=== PATIENT | male | born 1965 | race African-American/Black ===

== ENCOUNTER 2019-03-30 10:23 | Emergency (ER) | payer MEDICARE, MEDICAID ==
[2019-03-30 10:28] VITALS: BP 126/78
[2019-03-30] MEDS ORDERED: LIDOCAINE 2% VISCOUS SOLN 20 ML UDCUP PO ONE (10:40)
--- NOTE | 2019-03-30 10:42 | ER Document Report ---
HPI - HPI Time Seen by Provider: 03/30/19 10:40 Pain Level: 3 Notes: Patient is an otherwise healthy 53-year-old male presenting with left-sided dental pain. Patient reports dental pain has been present for approximately 2 days. He reports pain near tooth #17 and 18. Denies any fevers. Reports mild facial swelling. - CONSTITUTIONAL Constitutional: DENIES: Fever, Chills - EENT EENT: DENIES: Sore Throat, Ear Pain, Eye problems - NEURO Neurology: DENIES: Headache, Weakness, Vision blurred, Dizzinesss / Vertigo - CARDIOVASCULAR Cardiovascular: DENIES: Chest pain - RESPIRATORY Respiratory: DENIES: Trouble Breathing, Coughing - GASTROINTESTINAL Gastrointestinal: DENIES: Abdominal Pain, Black / Bloody Stools - URINARY Urinary: DENIES: Dysuria, Urgency, Frequency - MUSCULOSKELETAL Musculoskeletal: DENIES: Extremity pain Past Medical History - General Information source: Patient - Social History Smoking Status: Current Every Day Smoker Chew tobacco use (# tins/day): No Frequency of alcohol use: Occasional Drug Abuse: None Family History: Reviewed & Not Pertinent Patient has suicidal ideation: No Patient has homicidal ideation: No - Past Medical History Cardiac Medical History: Reports: Hx Hypertension Endocrine Medical History: Denies: Hx Diabetes Mellitus Type 2 Renal/ Medical History: Denies: Hx Peritoneal Dialysis - Immunizations Hx Diphtheria, Pertussis, Tetanus Vaccination: Yes - unknown Vertical Provider Document - CONSTITUTIONAL Notes: PHYSICAL EXAMINATION: GENERAL: Well-appearing, well-nourished and in no acute distress. HEAD: Atraumatic, normocephalic. EYES: Pupils equal round extraocular movements intact, conjunctiva are normal. ENT: Nares patent, erythema noted around tooth #17 and 18, no drainable abscess identified. Mild facial swelling noted. NECK: Normal range of motion LUNGS: No respiratory distress Musculoskeletal: Normal range of motion NEUROLOGICAL: Normal speech, normal gait. PSYCH: Normal mood, normal affect. SKIN: Warm, Dry, normal turgor, no rashes or lesions noted. - INFECTION CONTROL TRAVEL OUTSIDE OF THE [place] IN LAST 30 DAYS: No Course - Re-evaluation Re-evalutation: Presentation is most consistent with likely an infected tooth. Airway is patent. Vitals within normal limits. Patient is able swallow without any difficulty. There is no significant facial swelling. No evidence of Girish angina, apical abscess, or airway obstruction. Patient will be started on antibiotics. I've instructed to follow-up with dentistry as earliest ability for definitive management. At this time will discharge with return precautions and follow-up recommendations. Verbal discharge instructions given a the bedside and opportunity for questions given. Medication warnings reviewed. Patient is in agreement with this plan and has verbalized understanding of return precautions and the need for primary care follow-up in the next 24-72 hours. - Vital Signs Vital signs: Temp Pulse Resp BP Pulse Ox 97.4 F 62 16 126/78 H 100 03/30/19 10:27 03/30/19 10:27 03/30/19 10:27 03/30/19 10:27 03/30/19 10:27 Discharge - Discharge Clinical Impression: Dental infection Condition: Stable Disposition: HOME, SELF-CARE Additional Instructions: You have been seen for dental pain. It is very important that you follow-up with a dentist for definitive care. Please return if you develop fever greater than 101, swelling in your face, vomiting, difficulty breathing or swallowing, or any other symptoms that are concerning to you. For pain you should take ibuprofen 800 mg every 8 hours as needed. Please follow-up with the [facility]. Take the antibiotics as prescribed. Prescriptions: Penicillin V Potassium [Penicillin Vk 500 mg Tablet] 500 mg PO BID #20 tablet Referrals: NEWTON SAGASTUME MD [Primary Care Provider] - Follow up as needed
== END 2019-03-30 10:48 | disposition home or self-care (01) ==
LOC: ER 10:23
DX: K04.7 Periapical abscess without sinus (principal); F17.200 Nicotine dependence, unspecified, uncomplicated; I10 Essential (primary) hypertension
CPT/HCPCS: 99282; J3490

== ENCOUNTER 2019-04-03 16:05 | Emergency (ER) | payer MEDICARE, MEDICAID ==
[2019-04-03] MEDS ORDERED: HYDROCODONE/ACETAMINOPHEN 5-325 MG TABLET PO ONE (16:57)
[2019-04-03 17:24] LABS: ABSOLUTE EOSINOPHILS # (AUTO) 0.1 10^3/uL (0.0-0.6); ABSOLUTE LYMPHOCYTES (AUTO) 0.9 10^3/uL (0.5-4.7); ABSOLUTE MONOCYTES (AUTO) 0.8 10^3/uL (0.1-1.4); EOSINOPHILS % (AUTO) 1.2 % (0-6); HEMATOCRIT 36.5 % (37.9-51.0); HEMOGLOBIN 11.9 g/dL (13.5-17.0); LYMPHOCYTES % (AUTO) 8.6 % (13-45); MEAN CORPUSCULAR HEMOGLOBIN 27.2 pg (27.0-33.4); MEAN CORPUSCULAR HGB CONC 32.6 g/dL (32.0-36.0); MEAN CORPUSCULAR VOLUME 84 fl (80-97); MONOCYTES % (AUTO) 7.3 % (3-13); PLATELET COUNT 354 10^3/uL (150-450); RED BLOOD COUNT 4.37 10^6/uL (4.35-5.55); RED CELL DISTRIBUTION WIDTH 16.5 % (11.5-14.0); SEGMENTED NEUTROPHILS % (AUTO) 82.9 % (42-78); TOTAL CELLS COUNTED % (AUTO) 100 %; WHITE BLOOD COUNT 10.8 10^3/uL (4.0-10.5)
--- NOTE | 2019-04-03 18:07 | ER Document Report ---
ED General - General Chief Complaint: Abscess Stated Complaint: MOUTH PAIN Time Seen by Provider: 04/03/19 16:25 Primary Care Provider: [facility] [Provider Group] - Follow up in 1 week NEWTON SAGASTUME MD [Primary Care Provider] - Follow up as needed Notes: 53-year-old male who presents emergency department with a chief complaints of left lower jaw pain. His pain started 5 days ago. He was seen here in the emergency department for tooth pain 3 days ago. He has been taking penicillin, but states that his symptoms have not gotten any better. He states that on the way here he felt the abscess in his left lower jaw burst. Patient has a past medical history of hypertension. He difficulty breathing, shortness of breath, or difficulty swallowing. TRAVEL OUTSIDE OF THE [place] IN LAST 30 DAYS: No - Related Data Allergies/Adverse Reactions: No Known Allergies Allergy (Verified 03/30/19 10:25) Past Medical History - Social History Smoking Status: Unknown if Ever Smoked Family History: Reviewed & Not Pertinent Patient has suicidal ideation: No Patient has homicidal ideation: No - Past Medical History Cardiac Medical History: Reports: Hx Hypertension Endocrine Medical History: Denies: Hx Diabetes Mellitus Type 2 Renal/ Medical History: Denies: Hx Peritoneal Dialysis - Immunizations Hx Diphtheria, Pertussis, Tetanus Vaccination: Yes - unknown Review of Systems - Review of Systems Notes: REVIEW OF SYSTEMS: CONSTITUTIONAL : Denies recent illness. Denies recent unintentional weight loss. Denies fever, chills, or sweats. EENT: See HPI CARDIOVASCULAR: Denies chest pain. RESPIRATORY: Denies shortness of breath, cough, congestion, difficulty breathing, or wheezing. GASTROINTESTINAL: Denies nausea, vomiting, and diarrhea. Denies abdominal pain. Denies constipation. GENITOURINARY: Denies difficulty urinating, burning, blood in urine, urgency or frequency. MUSCULOSKELETAL: Denies neck and back pain. Denies joint pain or swelling. SKIN: Denies rash, itchiness, or lesions HEMATOLOGIC : Denies easy bruising or bleeding. LYMPHATIC: Denies swollen, painful, enlarged glands. NEUROLOGICAL: Denies no numbness or tingling denies weakness. Denies headache. Denies altered mental status. Denies alteration in speech. PSYCHIATRIC: Denies stress, anxiety, alteration in sleep patterns, or depression. All other systems reviewed and negative. Physical Exam - Vital signs Vitals: Temp Pulse Resp BP Pulse Ox 98.6 F 88 16 140/83 H 97 04/03/19 16:10 04/03/19 16:10 04/03/19 16:10 04/03/19 16:10 04/03/19 16:10 - Notes Notes: PHYSICAL EXAMINATION: GENERAL: Appears well, healthy, well-nourished, no acute distress. HEAD: Normocephalic, atraumatic. EYES: PERRL, conjunctiva normal, all extraocular movements intact, sclera nonicteric ENT: Moist mucous membranes. Fluctuance noted to left lower jaw. NECK: Supple, no noticeable swelling, redness, rash. Normal range of motion. LUNGS: Equal breath sounds bilaterally and clear to auscultation. No wheezes rales or rhonchi. CARDIOVASCULAR: S1-S2, regular rate, regular rhythm. Radial pulses 2+, normal. ABDOMEN: Normoactive bowel sounds. Soft. EXTREMITIES: Normal strength and range of motion, no pitting or edema. No cyanosis. NEUROLOGICAL: Moves all extremities upon command. Strength 5/5 in all extremities. PSYCH: Normal mood, normal affect. SKIN: Warm, dry. No rash, lesions, ulcerations noted. Normal skin turgor. Course - Re-evaluation Re-evalutation: 04/03/19 15:13 Patient has a mild leukocytosis of 10,000, consistent with the dental infection he has in his mouth. His chemistries show a mild elevation of his creatinine, but this may be chronic. I do not have any other labs to compare this to. All other labs are unremarkable. 04/03/19 19:[address] does not show an abscess. I had Dr. Cuevas side and evaluate the patient. He is in agreement to start the patient on clindamycin. A dose of clindamycin IV was already ordered, along with IV fluids. I spoke with patient and he will receive a good Rx coupon to help with the cost. Patient is agreement with this plan to be treated with clindamycin outpatient. I also recommended that he see 1 of the [place] use for 1 of the free dental clinics. Follow-up precautions were given. Verbal discharge instructions were given to the patient. They verbalized understanding. They are stable for discharge. - Vital Signs Vital signs: Temp Pulse Resp BP Pulse Ox 98.0 F 61 16 124/87 H 100 04/03/19 21:23 04/03/19 21:23 04/03/19 21:23 04/03/19 21:23 04/03/19 21:23 - Laboratory Result Diagrams: 04/03/19 17:10 04/03/19 17:10 Laboratory results interpreted by me: 04/03/19 04/03/19 17:10 17:10 WBC 10.8 H Hgb 11.9 L Hct 36.5 L RDW 16.5 H Seg Neutrophils % 82.9 H Lymphocytes % 8.6 L Absolute Neutrophils 9.0 H Creatinine 1.37 H Est GFR (Non-Af Amer) 54 L Discharge - Discharge Clinical Impression: Dental infection Condition: Stable Disposition: HOME, SELF-CARE Additional Instructions: You are seen today in the emergency department for facial swelling and dental pain. Your antibiotics are being changed to clindamycin. Please make sure you take all your medications as prescribed. You are also being sent home with pain medication please use sparingly. Please follow-up with the [facility] or 1 of the clinics below. [facility] dental [facility] [phone] [facility] [phone] Prescriptions: Hydrocodone/Acetaminophen [Cut Off 5-325 Tablet] 1 each PO Q4HP PRN #10 tablet PRN Reason: Clindamycin HCl [Cleocin 150 mg Capsule] 300 mg PO Q6 7 Days #56 capsule Referrals: NEWTON SAGASTUME MD [Primary Care Provider] - Follow up as needed [facility] [Provider Group] - Follow up in 1 week
[2019-04-03 18:08] LABS: ANION GAP 8 (5-19); BLOOD UREA NITROGEN 13 mg/dL (7-20); CALCIUM 9.9 mg/dL (8.4-10.2); CARBON DIOXIDE 27 mmol/L (22-30); CHLORIDE 107 mmol/L (98-107); GLUCOSE 93 mg/dL (75-110); POTASSIUM 4.6 mmol/L (3.6-5.0)
[2019-04-03] MEDS ORDERED: NORMAL SALINE 1000 ML 1,000 ML IV ONE (18:47)
[2019-04-03] MEDS ORDERED: CLINDAMYCIN PHOSPHATE INJ 300 MG/2 ML SDV IV ONE (18:47)
--- NOTE | 2019-04-03 19:07 | RADIOLOGY REPORT (SQ) ---
EXAM DESCRIPTION: CT FACIAL AREA WITH COMPLETED DATE/TIME: 04/03/2019 6:56 pm REASON FOR STUDY: eval abcess COMPARISON: None. TECHNIQUE: Post contrast images through the facial bones and orbits windowed for bone and soft tissu e. Additional coronal and sagittal reconstructed images reviewed. All images stored on PACS. All CT scanners at this facility use dose modulation, iterative reconstruction, and/or weight based d osing when appropriate to reduce radiation dose to as low as reasonably achievable (ALARA). [facility]: Dose Right [facility]: CareDose [facility]: Dose Right [facility]: Teradose 4D [facility]: Miyaobabei CONTRAST TYPE AND DOSE: contrast/concentration: Isovue 350.00 mg/ml; Total Contrast Delivered: 50.0 ml; Total Saline Delivered: 55.0 ml RENAL FUNCTION: GFR > 60. RADIATION DOSE: . LIMITATIONS: None. FINDINGS: FACIAL BONES: No fracture or bone lesion. ORBITS: Intact. No fracture. Symmetric intact globes and retroorbital soft tissues. PARANASAL SINUSES: No fluid levels. SOFT TISSUES: Inflammation of left sub mandibular subcutaneous tissues. INFERIOR BRAIN: Limited view. No acute findings. OTHER: No other significant finding. IMPRESSION: No abscess. TECHNICAL DOCUMENTATION: JOB ID: [id number] Quality ID # [id number]: Final reports with documentation of one or more dose reduction techniques (e.g., Au tomated exposure control, adjustment of the mA and/or kV according to patient size, use of iterative reconstruction technique) 2010 [employer]- All Rights Reserved Reading location - IP[facility]workstation name: [facility]
[2019-04-03 21:25] VITALS: BP 124/87
== END 2019-04-03 21:26 | disposition home or self-care (01) ==
LOC: ER 16:05
DX: K04.7 Periapical abscess without sinus (principal); R68.84 Jaw pain; I10 Essential (primary) hypertension
CPT/HCPCS: 36415; 87040; 85025; 80048; 70487; J3490; J7030; A9270; 96361; 96374; 99284

== ENCOUNTER 2019-09-23 06:32 | Emergency (ER) | payer MEDICARE, MEDICAID ==
--- NOTE | 2019-09-23 07:02 | ER Document Report ---
ED Medical Screen (RME) - General Chief Complaint: Arm Pain Stated Complaint: LEFT ARM PAIN Time Seen by Provider: 09/23/19 06:51 Primary Care Provider: NEWTON SAGASTUME MD [Primary Care Provider] - Follow up as needed TRAVEL OUTSIDE OF THE [place] IN LAST 30 DAYS: No - HPI Notes: 09/23/19 07:00 Patient is a 54-year-old male with a history of hypertension and peripheral vascular disease who presents complaining of left arm and hand aching, pain over the past 2 weeks. Patient has not noticed any improvement. He has noticed that his hand is cold as well. 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 No fever, chest pain, shortness of breath. I have treated and performed a rapid initial assessment of this patient. A comprehensive ED assessment and evaluation of the patient, analysis of test results and completion of medical decision making process will be conducted by additional ED providers. PHYSICAL EXAMINATION: GENERAL: Well-appearing, well-nourished and in no acute distress. A&Ox4. Answers questions appropriately. Left arm: The upper extremity is cold, dusky in appearance to the fingers, prolonged capillary refill, and no palpable radial pulse. - Related Data Allergies/Adverse Reactions: No Known Allergies Allergy (Verified 03/30/19 10:25) Past Medical History - Social History Chew tobacco use (# tins/day): No Frequency of alcohol use: Occasional Drug Abuse: None - Past Medical History Cardiac Medical History: Reports: Hx Hypertension Endocrine Medical History: Denies: Hx Diabetes Mellitus Type 2 Renal/ Medical History: Denies: Hx Peritoneal Dialysis - Immunizations Hx Diphtheria, Pertussis, Tetanus Vaccination: Yes - unknown Physical Exam - Vital signs Vitals: Temp Pulse Resp BP Pulse Ox 98.7 F 89 16 105/59 L 100 09/23/19 06:35 09/23/19 06:35 09/23/19 06:35 09/23/19 06:35 09/23/19 06:35 Course - Vital Signs Vital signs: Temp Pulse Resp BP Pulse Ox 98.7 F 89 16 105/59 L 100 09/23/19 06:35 09/23/19 06:35 09/23/19 06:35 09/23/19 06:35 09/23/19 06:35 Doctor's Discharge - Discharge Referrals: NEWTON SAGASTUME MD [Primary Care Provider] - Follow up as needed
[2019-09-23 07:44] LABS: INTERNATIONAL RATION (INR) 1.02; PROTHROMBIN TIME 13.4 SEC (11.4-15.4)
[2019-09-23 07:45] LABS: PARTIAL THROMBOPLASTIN TIME 64.9 SEC (23.5-35.8)
[2019-09-23] MEDS ORDERED: ONDANSETRON HCL INJ/PF 4 MG/2 ML SDV IV ONE (07:49)
[2019-09-23] MEDS ORDERED: MORPHINE SULFATE 10 MG/ML INJ IV ONE ×2 (07:49→10:13)
[2019-09-23 07:52] LABS: ABSOLUTE BASOPHILS # (AUTO) 0.1 10^3/uL (0.0-0.2); ABSOLUTE EOSINOPHILS # (AUTO) 0.1 10^3/uL (0.0-0.6); ABSOLUTE LYMPHOCYTES (AUTO) 1.7 10^3/uL (0.5-4.7); ABSOLUTE MONOCYTES (AUTO) 0.9 10^3/uL (0.1-1.4); ABSOLUTE NEUT (AUTO) 9.2 10^3/uL (1.7-8.2); BASOPHILS % (AUTO) 0.6 % (0-2); EOSINOPHILS % (AUTO) 1.1 % (0-6); HEMATOCRIT 40.8 % (37.9-51.0); HEMOGLOBIN 13.5 g/dL (13.5-17.0); LYMPHOCYTES % (AUTO) 14.3 % (13-45); MEAN CORPUSCULAR HEMOGLOBIN 27.2 pg (27.0-33.4); MEAN CORPUSCULAR HGB CONC 33.1 g/dL (32.0-36.0); MEAN CORPUSCULAR VOLUME 82 fl (80-97); MONOCYTES % (AUTO) 7.2 % (3-13); PLATELET COUNT 371 10^3/uL (150-450); RED BLOOD COUNT 4.97 10^6/uL (4.35-5.55); RED CELL DISTRIBUTION WIDTH 16.5 % (11.5-14.0); SEGMENTED NEUTROPHILS % (AUTO) 76.8 % (42-78); TOTAL CELLS COUNTED % (AUTO) 100 %
[2019-09-23 07:57] LABS: ALBUMIN 4.3 g/dL (3.5-5.0); ALKALINE PHOSPHATASE 89 U/L (38-126); ANION GAP 10 (5-19); ASPARTATE AMINO TRANSFERASE 31 U/L (17-59); BILIRUBIN,TOTAL 0.3 mg/dL (0.2-1.3); BLOOD UREA NITROGEN 20 mg/dL (7-20); CALCIUM 9.8 mg/dL (8.4-10.2); CARBON DIOXIDE 23 mmol/L (22-30); CHLORIDE 100 mmol/L (98-107); GLUCOSE 136 mg/dL (75-110); POTASSIUM 4.7 mmol/L (3.6-5.0); TOTAL PROTEIN 7.4 g/dL (6.3-8.2)
[2019-09-23] MEDS ORDERED: HEPARIN SODIUM,PORCINE/D5W 25,000 UNIT/250 ML RTUINJ IV PRN (09:17)
[2019-09-23] MEDS ORDERED: HEPARIN SOD (PORCINE) 1,000 UNIT/ML 10 ML VIAL IV ONE (09:17)
--- NOTE | 2019-09-23 10:09 | ER Document Report ---
ED General - General Chief Complaint: Arm Pain Stated Complaint: LEFT ARM PAIN Time Seen by Provider: 09/23/19 06:51 Primary Care Provider: NEWTON SAGASTUME MD [COMMUNITY BASED STAFF] - Follow up as needed TRAVEL OUTSIDE OF THE [place] IN LAST 30 DAYS: No - HPI Notes: Patient is a 54-year-old male with a history of hypertension, hyperlipidemia, peripheral artery disease, who presents the emergency department for evaluation of pain from his left shoulder down his entire left arm. He is right hand dominant. He states is worsened with use of his arm. He states his been going on for about 2-1/2 weeks, has gradually worsened. He states that he has significant pain when he tries to extend all of his fingers. He denies any fevers or chills. No nausea or vomiting. No chest pain or difficulty breathing. The patient has a history of a BKA on the left back in 2013. This is secondary to acute arterial occlusion. The patient is not currently on any blood thinners. He was actually seen at an urgent care about a week before. He was given "2 shots" and told that it was likely secondary to a shoulder injury. - Related Data Allergies/Adverse Reactions: No Known Allergies Allergy (Verified 03/30/19 10:25) Home Medications: Patient is unsure of medications. He takes an antihypertensive, medication for hyperlipidemia. Past Medical History - General Information source: Patient - Social History Smoking Status: Current Every Day Smoker Chew tobacco use (# tins/day): No Frequency of alcohol use: Occasional Drug Abuse: None Family History: Reviewed & Not Pertinent Patient has suicidal ideation: No Patient has homicidal ideation: No - Past Medical History Cardiac Medical History: Reports: Hx Hypercholesterolemia, Hx Hypertension, Hx Peripheral Vascular Disease Endocrine Medical History: Denies: Hx Diabetes Mellitus Type 2 Renal/ Medical History: Denies: Hx Peritoneal Dialysis Past Surgical History: Reports: Hx Orthopedic Surgery - Left BKA - Immunizations Hx Diphtheria, Pertussis, Tetanus Vaccination: Yes - unknown Review of Systems - Review of Systems Constitutional: No symptoms reported EENT: No symptoms reported Cardiovascular: No symptoms reported Respiratory: No symptoms reported Gastrointestinal: No symptoms reported Genitourinary: No symptoms reported Musculoskeletal: See HPI Skin: No symptoms reported Neurological/Psychological: No symptoms reported Physical Exam - Vital signs Vitals: Temp Pulse Resp BP Pulse Ox 98.7 F 89 16 105/59 L 100 09/23/19 06:35 09/23/19 06:35 09/23/19 06:35 09/23/19 06:35 09/23/19 06:35 - Notes Notes: Is a 54-year-old male who appears his stated age, no acute distress. Has normocephalic and atraumatic, pupils are equal round, reactive to light. Oral mucosa is moist. Heart regular rate and rhythm, lungs are clear to station bi laterally. Abdomen soft, nontender, normoactive bowel sounds. Patient has a left BKA, left stump is intact. Examination of the right upper extremity yields palpable pulses, warm to the touch. Left upper extremity examination reveals cool and dusky fingertips. No palpable radial pulse. Patient is tender to palpation throughout the biceps and muscles of the forearm. Patient has pain with passive and active extension of the hand and fingers, but no significant edema is noted. Course - Re-evaluation Re-evalutation: 09/23/19 10:07 Patient presents to the emergency department for evaluation. He was initially evaluated and seemed to have findings consistent with acute arterial occlusion. Arterial Doppler was performed which revealed trickle flow at the axillary artery and nearly no flow distal to that. The patient was started on heparin. I spoke with Dr. Crane, vascular surgeon at [facility]. He accepted the p atient in transfer. - Vital Signs Vital signs: Temp Pulse Resp BP Pulse Ox 98 F 80 18 118/104 H 98 09/23/19 11:20 09/23/19 11:20 09/23/19 11:20 09/23/19 11:20 09/23/19 11:20 - Laboratory Result Diagrams: 09/23/19 07:15 09/23/19 07:15 Laboratory results interpreted by me: 09/23/19 09/23/19 09/23/19 07:15 07:15 07:15 WBC 12.0 H RDW 16.5 H Absolute Neuts (auto) 9.2 H APTT 64.9 H Sodium 133.2 L Glucose 136 H - Diagnostic Test Radiology reviewed: Reports reviewed Radiology results interpreted by me: 09/23/19 10:08 Verbal report given by Dr. Cari Rivas Discharge - Discharge Clinical Impression: Acute occlusion of artery of upper extremity Condition: Stable Disposition: [facility] Admitting Provider: Dr. Jason Crane Referrals: NEWTON SAGASTUME MD [COMMUNITY BASED STAFF] - Follow up as needed
[2019-09-23 11:54] VITALS: BP 118/104
[2019-09-23] MEDS ORDERED: HEPARIN SOD (PORCINE) 1,000 UNIT/ML 10 ML VIAL IV PRN (12:17)
--- NOTE | 2019-09-23 13:24 | XCELERA REPORT ---
[address] [address] Upper Extremity Arterial Evaluation Name: GIGI DOUGLAS Age: 54 yrs Gender: Male : 1965 Patient Status: Emergency Patient Location: ER Study Date: 09/23/2019 08:28 AM Procedure: A duplex scan of the upper extremity arteries was performed on the left. Reason For Study: Left arm pain, dusky, cold Ordering Physician: DENNIS RODRIGUEZ Performed By: Jamari Monge Measurements and Calculations Right Left Dist CCA PSV 76.4 cm/sec Prox SCLA PSV 68.4 cm/sec Mid SCLA PSV 8.3 cm/sec Ax A PSV -6.7 cm/sec Mid Rad A PSV 10.0 cm/sec Dist Rad A PSV 108.7 9.2 cm/sec Mid Ulnar A PSV 8.1 cm/sec Dist Ulnar A PSV -6.7 cm/sec Ax A PSV -6.7 cm/sec Dist Rad A PSV 108.7 9.2 cm/sec Dist Ulnar A PSV -6.7 cm/sec Mid Rad A PSV 10.0 cm/sec Mid SCLA PSV 8.3 cm/sec Mid Ulnar A PSV 8.1 cm/sec Left Side Arterial Evaluation Normal velocity and triphasic waveforms noted in the Common Carotid artery. Monophasic with very velocity from Subclavian to the forearm vessels, worsening distally to trickle, then no flow . Critical Findings Discussed with Dr Hernandez in the ER. Interpretation Summary Severe hemodynamically significant lesions in the left upper extremity only, on duplex imaging, at rest. Very little flow in the left upper extremity, worsening distally to no flow. Compatible with tissue loss. : DENNIS RODRIGUEZ, Jonathon >
== END 2019-09-23 11:55 | disposition short-term general hospital (02) ==
LOC: ER 06:32
DX: E11.51 Type 2 diabetes mellitus with diabetic peripheral angiopathy without gangrene (principal); I70.208 Unspecified atherosclerosis of native arteries of extremities, other extremity; I10 Essential (primary) hypertension; E78.5 Hyperlipidemia, unspecified; Z79.899 Other long term (current) drug therapy; F17.200 Nicotine dependence, unspecified, uncomplicated; Z89.512 Acquired absence of left leg below knee
CPT/HCPCS: 36415; 85025; 85610; 85730; 80053; 93931 ×2; J1644; J2270; J2405; 96365; 96366; 96375; 96376; 99285

== ENCOUNTER 2019-10-07 11:58 | Emergency (ER) | payer MEDICARE, MEDICAID ==
--- NOTE | 2019-10-07 12:46 | ER Document Report ---
ED Medical Screen (RME) - General Chief Complaint: Other Stated Complaint: BLEEDING AT "SHOT" SITE Time Seen by Provider: 10/07/19 12:40 Mode of Arrival: Ambulatory Information source: Patient Notes: Patient states that he was administering a blood thinning shot in his abdomen and since then he has not been able to get the bleeding to his stomach to stop. Patient with an additional bruise to the left side of abdomen from a previous injection. Patient denies any other abnormal bleeding or bruising. Patient recently had surgery to the left upper extremity due to DVT in the left arm. I have greeted and performed a rapid initial assessment of this patient. A comprehensive ED assessment and evaluation of the patient, analysis of test results and completion of the medical decision making process will be conducted by additional ED providers. TRAVEL OUTSIDE OF THE [place] IN LAST 30 DAYS: No - Related Data Allergies/Adverse Reactions: No Known Allergies Allergy (Verified 03/30/19 10:25) Past Medical History - Past Medical History Cardiac Medical History: Reports: Hx Hypercholesterolemia, Hx Hypertension, Hx Peripheral Vascular Disease Endocrine Medical History: Denies: Hx Diabetes Mellitus Type 2 Renal/ Medical History: Denies: Hx Peritoneal Dialysis Past Surgical History: Reports: Hx Orthopedic Surgery - Left BKA - Immunizations Hx Diphtheria, Pertussis, Tetanus Vaccination: Yes - unknown Physical Exam - Vital signs Vitals: Temp Pulse Resp BP Pulse Ox 99.0 F 107 H 18 128/73 H 100 10/07/19 12:07 10/07/19 12:07 10/07/19 12:07 10/07/19 12:07 10/07/19 12:07 - Abdominal Inspection: Other - Additional ecchymotic area to left upper quadrant Adult front & back diagram: 1 - Puncture wound with active bleeding that is able to be controlled with pressure Course - Vital Signs Vital signs: Temp Pulse Resp BP Pulse Ox 99.0 F 107 H 18 128/73 H 100 10/07/19 12:07 10/07/19 12:07 10/07/19 12:07 10/07/19 12:07 10/07/19 12:07
[2019-10-07 13:04] LABS: ABSOLUTE BASOPHILS # (AUTO) 0.1 10^3/uL (0.0-0.2); ABSOLUTE EOSINOPHILS # (AUTO) 0.1 10^3/uL (0.0-0.6); ABSOLUTE LYMPHOCYTES (AUTO) 1.6 10^3/uL (0.5-4.7); TOTAL CELLS COUNTED % (AUTO) 100 %; WHITE BLOOD COUNT 8.8 10^3/uL (4.0-10.5)
[2019-10-07 13:10] LABS: INTERNATIONAL RATION (INR) 1.97; PROTHROMBIN TIME 22.7 SEC (11.4-15.4)
[2019-10-07 13:13] LABS: PARTIAL THROMBOPLASTIN TIME 121.3 SEC (23.5-35.8)
[2019-10-07 13:16] LABS: BASOPHILS % (AUTO) 1.3 % (0-2); HEMATOCRIT 26.2 % (37.9-51.0); HEMOGLOBIN 9.4 g/dL (13.5-17.0); LYMPHOCYTES % (AUTO) 18.5 % (13-45); MEAN CORPUSCULAR HEMOGLOBIN 29.4 pg (27.0-33.4); MEAN CORPUSCULAR VOLUME 82 fl (80-97); MONOCYTES % (AUTO) 11.1 % (3-13); PLATELET COUNT 784 10^3/uL (150-450); RED BLOOD COUNT 3.21 10^6/uL (4.35-5.55); SEGMENTED NEUTROPHILS % (AUTO) 68.1 % (42-78)
[2019-10-07 13:32] LABS: ALBUMIN 4.2 g/dL (3.5-5.0); ALKALINE PHOSPHATASE 101 U/L (38-126); ANION GAP 10 (5-19); ASPARTATE AMINO TRANSFERASE 30 U/L (17-59); BILIRUBIN,TOTAL 0.2 mg/dL (0.2-1.3); BLOOD UREA NITROGEN 21 mg/dL (7-20); CALCIUM 9.6 mg/dL (8.4-10.2); CARBON DIOXIDE 27 mmol/L (22-30); CHLORIDE 97 mmol/L (98-107); GLUCOSE 99 mg/dL (75-110); POTASSIUM 5.3 mmol/L (3.6-5.0); TOTAL PROTEIN 7.3 g/dL (6.3-8.2)
--- NOTE | 2019-10-07 13:42 | ER Document Report ---
ED General - General Chief Complaint: Other Stated Complaint: BLEEDING AT "SHOT" SITE Time Seen by Provider: 10/07/19 12:40 Mode of Arrival: Ambulatory Information source: Patient Notes: Patient is a 54-year-old male presenting to the emergency department chief complaint of bleeding from site of blood thinner shot. Patient states he has peripheral vascular disease and was placed on both oral and injectable blood thinners. Patient states that today he gave himself his shot at about 1130 and started bleeding from the injection site. Patient did do direct pressure without resolution of symptoms and is here for evaluation and treatment. TRAVEL OUTSIDE OF THE [place] IN LAST 30 DAYS: No - HPI Onset: Just prior to arrival Onset/Duration: Sudden Quality of pain: No pain Severity: None Associated symptoms: None Exacerbated by: Movement Relieved by: Denies Similar symptoms previously: No Recently seen / treated by doctor: Yes - Related Data Allergies/Adverse Reactions: No Known Allergies Allergy (Verified 03/30/19 10:25) Past Medical History - General Information source: Patient - Social History Smoking Status: Former Smoker Frequency of alcohol use: None Drug Abuse: None Family History: Reviewed & Not Pertinent Patient has suicidal ideation: No Patient has homicidal ideation: No - Past Medical History Cardiac Medical History: Reports: Hx Hypercholesterolemia, Hx Hypertension, Hx Peripheral Vascular Disease Endocrine Medical History: Denies: Hx Diabetes Mellitus Type 2 Renal/ Medical History: Denies: Hx Peritoneal Dialysis Past Surgical History: Reports: Hx Orthopedic Surgery - Left BKA - Immunizations Hx Diphtheria, Pertussis, Tetanus Vaccination: Yes - unknown Review of Systems - Review of Systems Notes: REVIEW OF SYSTEMS: CONSTITUTIONAL : Denies fever, chills, or sweats. Denies recent illness. EENT: Denies eye, ear, throat, or mouth pain or symptoms. Denies nasal or sinus congestion. CARDIOVASCULAR: Denies chest pain. RESPIRATORY: Denies cough, cold, or chest congestion. Denies shortness of breath, difficulty breathing, or wheezing. GASTROINTESTINAL: Denies abdominal pain. Denies nausea, vomiting, or diarrhea. Denies constipation. GENITOURINARY: Denies difficulty urinating, painful urination, burning, frequency, or blood in urine. MUSCULOSKELETAL: Denies neck or back pain or joint pain or swelling. SKIN: Denies rash or skin lesions. HEMATOLOGIC : Patient is currently on blood thinner both oral and injectable which is causing the bleeding from injection site NEUROLOGICAL: Denies altered mental status or loss of consciousness. Denies headache. Denies weakness or paralysis or loss of use of either side. Denies problems with gait or speech. Denies sensory or motor loss. PSYCHIATRIC: Denies suicidal or homicidal ideations 10 Systems are negative unless otherwise specified above Physical Exam - Vital signs Vitals: Temp Pulse Resp BP Pulse Ox 99.0 F 107 H 18 128/73 H 100 10/07/19 12:07 10/07/19 12:07 10/07/19 12:07 10/07/19 12:07 10/07/19 12:07 - Notes Notes: PHYSICAL EXAMINATION: GENERAL: Well-appearing, well-nourished and in no acute distress. HEAD: Atraumatic, normocephalic. EYES: Pupils equal round and reactive to light, extraocular movements intact, sclera anicteric, conjunctiva are normal. ENT: nares patent, oropharynx clear without exudates. Moist mucous membranes. NECK: Normal range of motion, supple without lymphadenopathy, no appreciable JVD LUNGS: Lungs clear to auscultation bilaterally and equal. No wheezes rales or rhonchi. HEART: Regular rate and rhythm without murmurs ABDOMEN: Soft, nontender, normal bowel sounds. No guarding, no rebound. No masses appreciated. Patient does have a punctate area of bleeding to the right middle abdominal quadrant from injection site EXTREMITIES: Active full range of motion, no pitting or edema. Patient has left-sided BKA. Patient has signs of recent surgery to the left arm NEUROLOGICAL: No focal neurological deficits. Moves all extremities spontaneously and on command. SKIN: Warm, Dry, and intact. Normal turgor, no rashes or lesions noted. Course - Re-evaluation Re-evalutation: 10/07/19 14:49 1449 Reevaluation at this time patient has had pressure bandage and abdominal binder to the site however when I released both the bandage and the abdominal binder patient is still bleeding from the site we will use silver nitrate to attempt to coagulate the injection site. 10/07/19 16:48 Re-evaluation at this time, patient shows no sign of break through bleeding. I have discussed holding the injection for tonight but continuing taking his normal blood thinners p.o. tonight as scheduled. Patient states he has an appointment tomorrow morning with his primary care provider and will discuss medications at that time. Patient is stable for discharge home. - Vital Signs Vital signs: Temp Pulse Resp BP Pulse Ox 99.0 F 107 H 18 128/73 H 100 10/07/19 12:07 10/07/19 12:07 10/07/19 12:07 10/07/19 12:07 10/07/19 12:07 - Laboratory Result Diagrams: 10/07/19 12:50 10/07/19 12:50 Laboratory results interpreted by me: 10/07/19 10/07/19 10/07/19 12:50 12:50 12:50 RBC 3.21 L Hgb 9.4 L Hct 26.2 L RDW 16.0 H Plt Count 784 H PT 22.7 H APTT 121.3 H Sodium 133.9 L Potassium 5.3 H Chloride 97 L BUN 21 H Discharge - Discharge Clinical Impression: Bleeding at insertion site, Elevated INR Condition: Stable Disposition: HOME, SELF-CARE Additional Instructions: Recommend holding your injectable blood thinner tonight taking other medications as previously prescribed. Recommend following up with your primary care prov ider tomorrow as scheduled. Return to the emergency department for worsening symptoms.
[2019-10-07 17:03] VITALS: BP 111/76
== END 2019-10-07 17:01 | disposition home or self-care (01) ==
LOC: ER 11:58
DX: R58 Hemorrhage, not elsewhere classified (principal); E11.51 Type 2 diabetes mellitus with diabetic peripheral angiopathy without gangrene; I10 Essential (primary) hypertension; Z79.899 Other long term (current) drug therapy; Z87.891 Personal history of nicotine dependence
CPT/HCPCS: 36415; 80053; 85025; 85610; 85730; 99282